=== PATIENT | female | born 1975 | race Two or more races ===

== ENCOUNTER → 2024-02-03 | Outpatient (CLI) | payer OTHER, SELFPAY ==
[2024-02-03 17:46] LABS: Free T3 3.6 pg/mL (2.3-4.2); Free T4 (Free Thyroxine) 1.24 ng/dL (0.89-1.76); Thyroid Stimulating Hormone 0.79 uIU/mL (0.55-4.78)
[2024-02-03 17:49] LABS: Follicle Stimulating Hormone 3.12 mIU/mL (See Note); Vitamin D 25 Hydroxy Total 22.8 ng/mL (7.3-40.2)
[2024-02-16 06:42] LABS: DHEA Sulfate* 52 mcg/dL (19-231); Estradiol, Ultrasensitive* 217 pg/mL; Luteinizing Hormone* 8.8 mIU/mL; Testosterone, Free,Dialysis 1.1 pg/mL (0.1-6.4); Testosterone, Total, Dialysis 16 ng/dL (2-45)
== END | disposition home or self-care (01) ==
LOC: COPL 16:14
PROVIDERS: PCP Family Medicine; Referring Provider Nurse Practitioner Women's Health; Visit Provider Nurse Practitioner Women's Health
DX: N95.1 Menopausal and female climacteric states (principal); E03.9 Hypothyroidism, unspecified; E55.9 Vitamin D deficiency, unspecified
CPT/HCPCS: 36415; 82306; 82627; 82670; 83001; 83002; 84144; 84402; 84403; 84439; 84443; 84481

== ENCOUNTER → 2024-03-12 | Outpatient (CLI) | payer OTHER, SELFPAY ==
[2024-03-12 09:03] LABS: Cardiac Risk Estimate 3.9 RATIO (3.7-5.6); Cholesterol 215 mg/dL (132-200); Free T3 3.6 pg/mL (2.3-4.2); Free T4 (Free Thyroxine) 1.11 ng/dL (0.89-1.76); HDL Cholesterol 55 mg/dL (40-60); LDL Cholesterol,Calculated 129 mg/dL (0-130); Thyroid Stimulating Hormone 0.53 uIU/mL (0.55-4.78); Triglycerides 153 mg/dL (30-150)
[2024-03-22 06:54] LABS: Estradiol, Ultrasensitive* 196 pg/mL; Progesterone,LC/MS* 0.1 ng/mL; Testosterone,Total* 20 ng/dL (2-45)
== END | disposition home or self-care (01) ==
LOC: COPL 07:09
PROVIDERS: PCP Family Medicine; Referring Provider Nurse Practitioner Women's Health; Visit Provider Nurse Practitioner Women's Health
DX: N95.1 Menopausal and female climacteric states (principal); E78.2 Mixed hyperlipidemia
CPT/HCPCS: 36415; 80061; 82670; 84144; 84403; 84439; 84443; 84481

== ENCOUNTER → 2024-09-01 | Outpatient (CLI) | payer OTHER, SELFPAY ==
[2024-09-01 09:15] LABS: Free T4 (Free Thyroxine) 1.32 ng/dL (0.89-1.76); Thyroid Stimulating Hormone 0.77 uIU/mL (0.55-4.78)
== END | disposition home or self-care (01) ==
LOC: COPL 07:19
PROVIDERS: PCP Family Medicine; Referring Provider Family Medicine; Visit Provider Family Medicine
DX: R94.6 Abnormal results of thyroid function studies (principal)
CPT/HCPCS: 36415; 84439; 84443

== ENCOUNTER → 2024-09-16 | Outpatient (CLI) | payer OTHER, BC, SELFPAY ==
[2024-09-16 09:01] LABS: Glucose Estimated Average 100 mg/dL (80-131); Hemoglobin A1C 5.1 % Hgb (4.8-6.0)
[2024-09-16 09:21] LABS: Cardiac Risk Estimate 4.2 RATIO (3.7-5.6); Cholesterol 186 mg/dL (132-200); HDL Cholesterol 44 mg/dL (40-60); LDL Cholesterol,Calculated 98 mg/dL (0-130); Triglycerides 221 mg/dL (30-150)
[2024-10-04 06:42] LABS: Cortisol,total,LC/MS/MS* 11.7 mcg/dL
== END | disposition home or self-care (01) ==
PROVIDERS: PCP Family Medicine; Referring Provider Family Medicine; Visit Provider Family Medicine
DX: E66.9 Obesity, unspecified (principal)
CPT/HCPCS: 36415; 80061; 82533; 83036

== ENCOUNTER → 2024-09-30 | Outpatient (CLI) | payer OTHER, BC, SELFPAY ==
--- NOTE | 2024-09-30 16:00 | XR_ITS ---
Examination: Pelvic ultrasound, transabdominal, complete Technique: Transabdominal ultrasound of the pelvis performed using grayscale imaging Date and time of exam: September 30, 2024 1557 hours INDICATIONS: Right-sided pelvic pain 4 months, hysterectomy FINDINGS: Absent uterus Right ovary 2.1 cm arterial flow Left ovary 3.2 cm arterial flow IMPRESSION: Absent uterus No adnexal mass
== END | disposition home or self-care (01) ==
PROVIDERS: PCP Family Medicine; Referring Provider Family Medicine; Visit Provider Family Medicine
DX: R10.2 Pelvic and perineal pain (principal); Z90.710 Acquired absence of both cervix and uterus
CPT/HCPCS: 76856